=== PATIENT | male | born 1980 | race Caucasian/White ===

== ENCOUNTER 2018-05-18 15:28 | Emergency (ER) | payer BC ==
[~2018-05-18] VITALS: Ht 188 cm; Wt 113.6 kg
[2018-05-18 15:57] VITALS: Ht 188 cm; Wt 113.6 kg
[2018-05-18 16:22] LABS: BASOPHILS 0.1 % (0-2); EOSINOPHILS 0 % (0-7); HEMATOCRIT 47.9 % (42.0-54.0); HEMOGLOBIN 16.3 g/dL (13.5-17.5); IMMATURE GRANULOCYTES 0.2 % (0-5); LYMPHOCYTES 7.6 % (15-50); MCH 30.9 pg (26.0-34.0); MCV 90.9 fL (80.0-100.0); MEAN PLATELET VOLUME 9.2 fL (7.4-10.4); MONOCYTES 3.6 % (2-11); NEUTROPHILS 88.5 % (40-80); PLATELET COUNT 287 10x3/uL (130-400); RBC 5.27 10x6/uL (4.20-6.10); WBC 12.7 10x3/uL (4.8-10.8)
[2018-05-18 16:41] LABS: ALBUMIN 4.2 g/dL (3.4-5.0); ALKALINE PHOSPHATASE 68 U/L (46-116); ALT (SGPT) 34 U/L (10-68); BILIRUBIN - TOTAL 0.43 mg/dL (0.2-1.3); CALC OSMOLALITY 278 mosm/kg (275-300); CARBON DIOXIDE 28.7 mmol/L (21.0-32.0); CHLORIDE - SERUM 101 mmol/L (98-107); CREATININE - SERUM 1.2 mg/dL (0.6-1.3); GLUCOSE 132 mg/dL (74-106); POTASSIUM - SERUM 4.2 mmol/L (3.5-5.1); PROTEIN - SERUM 8.3 g/dL (6.4-8.2); SODIUM 139 mmol/L (136-145); UREA NITROGEN 11 mg/dL (7-18); eGFR NON AFRICAN AMERICAN 72 mL/min (90-120)
[2018-05-18 16:44] LABS: AMYLASE - SERUM 64 U/L (25-115); LIPASE 60 U/L (73-393)
[2018-05-18 16:45] LABS: TROPONIN-I < 0.017 ng/mL (0.000-0.060)
[2018-05-18 18:12] LABS: APPEARANCE CLEAR (CLEAR); BILIRUBIN NEGATIVE (NEGATIVE); COLOR YELLOW (YELLOW); GLUCOSE NEGATIVE (NEGATIVE); KETONE SMALL mg/dL (NEGATIVE); NITRITE NEGATIVE (NEGATIVE); PROTEIN NEGATIVE (NEGATIVE); UROBILINOGEN NORMAL (NORMAL)
[2018-05-18] MEDS ORDERED: COMPAZINE5 MG PO (20:38)
[2018-05-18] MEDS ORDERED: BENTYL 20 MG TA20 MG PO (20:38)
[2018-05-18 21:24] VITALS: BP 156/80
== END 2018-05-18 21:24 | disposition home or self-care (01) ==
LOC: D.ER 15:28
PROVIDERS: Family Medicine
DX: A08.4 Viral intestinal infection, unspecified (principal); R10.84 Generalized abdominal pain; R11.2 Nausea with vomiting, unspecified; F17.200 Nicotine dependence, unspecified, uncomplicated

== ENCOUNTER 2019-03-22 15:32 | Emergency (ER) | payer BC ==
[~2019-03-22] VITALS: Ht 188 cm; Wt 90.9 kg
[~2019-03-22 15:32] MED LIST: BENTYL 20 MG TA20 MG PO; COMPAZINE5 MG PO
[2019-03-22 15:35] VITALS: Ht 188 cm; Wt 90.9 kg
[2019-03-22 16:05] LABS: BASOPHILS 0.1 % (0-2); EOSINOPHILS 0.1 % (0-7); HEMATOCRIT 45.7 % (42.0-54.0); HEMOGLOBIN 16.3 g/dL (13.5-17.5); IMMATURE GRANULOCYTES 0.2 % (0-5); MCHC 35.7 g/dL (31.0-37.0); MCV 86.9 fL (80.0-100.0); MEAN PLATELET VOLUME 9.6 fL (7.4-10.4); MONOCYTES 5.9 % (2-11); NEUTROPHILS 88.7 % (40-80); PLATELET COUNT 252 10x3/uL (130-400); RBC 5.26 10x6/uL (4.20-6.10); RDW 13.3 % (11.5-14.5); WBC 16.6 10x3/uL (4.8-10.8)
[2019-03-22 16:21] LABS: ALBUMIN 4.6 g/dL (3.4-5.0); ALKALINE PHOSPHATASE 55 U/L (46-116); ALT (SGPT) 70 U/L (10-68); BILIRUBIN - TOTAL 1.51 mg/dL (0.2-1.3); CALC OSMOLALITY 288 mosm/kg (275-300); CALCIUM 9.7 mg/dL (8.5-10.1); CARBON DIOXIDE 30.6 mmol/L (21.0-32.0); CHLORIDE - SERUM 99 mmol/L (98-107); CREATININE - SERUM 1.3 mg/dL (0.6-1.3); GLUCOSE 135 mg/dL (74-106); POTASSIUM - SERUM 3.2 mmol/L (3.5-5.1); SODIUM 142 mmol/L (136-145); UREA NITROGEN 25 mg/dL (7-18); eGFR NON AFRICAN AMERICAN 65 mL/min (90-120)
[2019-03-22 16:25] LABS: AMYLASE - SERUM 54 U/L (25-115); LIPASE 66 U/L (73-393)
[2019-03-22 16:40] LABS: TROPONIN-I < 0.017 ng/mL (0.000-0.060)
[2019-03-22] MEDS ORDERED: ZOFRAN8 MG PO (18:26)
[2019-03-22] MEDS ORDERED: FLAGYL500 MG PO (18:26)
[2019-03-22] MEDS ORDERED: LEVOFLOXACIN500 MG PO (18:26)
[2019-03-22 19:03] LABS: APPEARANCE CLEAR (CLEAR); BILIRUBIN NEGATIVE (NEGATIVE); COLOR DY (YELLOW); GLUCOSE NEGATIVE (NEGATIVE); KETONE LARGE mg/dL (NEGATIVE); NITRITE NEGATIVE (NEGATIVE); PROTEIN NEGATIVE (NEGATIVE); SPECIFIC GRAVITY 1.005 (1.005-1.020); UROBILINOGEN NORMAL (NORMAL)
[2019-03-22] MEDS ORDERED: ULTRAM50 MG PO (19:31)
[2019-03-22 20:33] VITALS: BP 151/96
== END 2019-03-22 20:33 | disposition home or self-care (01) ==
LOC: D.ER 15:32
PROVIDERS: Family Medicine
DX: K52.9 Noninfective gastroenteritis and colitis, unspecified (principal); F17.200 Nicotine dependence, unspecified, uncomplicated